=== PATIENT | female | born 1985 | race Caucasian/White ===

== ENCOUNTER 2017-12-31 18:11 | Emergency (ER) | payer MEDICAID ==
[~2017-12-31] VITALS: Ht 160 cm; Wt 115.6 kg
[2017-12-31 18:55] LABS: BASOPHILS # (AUTO) 0.08 x10^3/uL (0-0.1); BASOPHILS % (AUTO) 1 % (0-1); EOSINOPHILS % (AUTO) 2 % (1-7); LYMPHOCYTES # (AUTO) 2.09 x10^3/uL (1-3.4); LYMPHOCYTES % (AUTO) 21 % (22-44); MD NO; MEAN CORPUSCULAR HGB CONC 33.3 g/dL (32.4-35.8); MEAN CORPUSCULAR VOLUME 84.1 fL (80-100); MONOCYTES # (AUTO) 0.55 x10^3/uL (0.2-0.8); MONOCYTES % (AUTO) 6 % (2-9); NEUTROPHILS % (AUTO) 71 % (42-75); PLATELET COUNT 251 x10^3/uL (130-400); RED BLOOD COUNT 4.98 x10^6/uL (3.82-5.3); RED CELL DISTRIBUTION WIDTH 13.9 % (9.6-15.2)
[2017-12-31 19:05] LABS: ALANINE AMINOTRANSFERASE 43 U/L (12-78); ALBUMIN 3.9 g/dL (3.4-5.0); ANION GAP 8 mmol/L (5-15); CHLORIDE 109 mmol/L (98-107); CREATININE 0.69 mg/dL (0.55-1.02)
[2017-12-31 19:09] LABS: ALKALINE PHOSPHATASE 82 U/L (45-117); BILIRUBIN,TOTAL 0.3 mg/dL (0.2-1.0); TOTAL PROTEIN 7.5 g/dL (6.4-8.2)
[2017-12-31 19:56] VITALS: BP 120/84
== END 2017-12-31 20:10 | disposition home or self-care (01) ==
LOC: ED 18:44
DX: G44.219 Episodic tension-type headache, not intractable (principal); E66.9 Obesity, unspecified
CPT/HCPCS: 36415; 70450; 80053; 84703; 85025; 99285

== ENCOUNTER 2019-07-28 12:32 | Emergency (ER) | payer OTHER ==
[~2019-07-28] VITALS: Ht 160 cm; Wt 128.8 kg
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
[2019-07-28] MEDS ORDERED: METHOCARBAMOL 750 MG TABLET PO ONE (13:30)
[2019-07-28] MEDS ORDERED: IBUPROFEN 800 MG TABLET PO ONE (13:30)
[2019-07-28 14:42] VITALS: BP 132/78
== END 2019-07-28 14:44 | disposition home or self-care (01) ==
LOC: ED 14:40
DX: S39.012A Strain of muscle, fascia and tendon of lower back, initial encounter (principal); S29.012A Strain of muscle and tendon of back wall of thorax, initial encounter; V49.19XA Passenger injured in collision with other motor vehicles in nontraffic accident, initial encounter; Y93.89 Activity, other specified; Y92.410 Unspecified street and highway as the place of occurrence of the external cause; Y99.8 Other external cause status
CPT/HCPCS: 72072; 72110; 99283

== ENCOUNTER 2019-08-08 19:11 | Emergency (ER) | payer OTHER ==
[~2019-08-08] VITALS: Ht 160 cm; Wt 129.0 kg
[2019-08-08 19:36] VITALS: BP 124/70
[2019-08-08] MEDS ORDERED: AMOXICILLIN/CLAV 875-125MG TABLET PO STA (21:19)
[2019-08-08] MEDS ORDERED: AMOXICILLIN/CLAV 875-125MG TABLET ONE (22:10)
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
--- NOTE | 2019-08-08 22:25 | NUR ---
Patient/Caregiver given discharge instructions and they have confirmed that they understand the instructions. Patient ambulatory with steady gait.
== END 2019-08-08 22:26 | disposition home or self-care (01) ==
LOC: ED 22:00
DX: J02.0 Streptococcal pharyngitis (principal); E66.9 Obesity, unspecified
CPT/HCPCS: 71046; 87880; 99284

== ENCOUNTER 2020-04-30 09:24 | Emergency (ER) | payer OTHER ==
[~2020-04-30] VITALS: Ht 160 cm; Wt 126.6 kg
[2020-04-30] MEDS ORDERED: HYDROcodone/APAP 5/325 TABLET ONE ×2 (09:45→09:48)
[2020-04-30] MEDS ORDERED: HYDROcodone/APAP 5/325 TABLET PO ONE (10:00)
[2020-04-30 10:21] VITALS: BP 174/63
== END 2020-04-30 10:23 | disposition home or self-care (01) ==
LOC: ED 10:07
DX: K04.7 Periapical abscess without sinus (principal); M79.89 Other specified soft tissue disorders; E66.9 Obesity, unspecified; Z68.42 Body mass index [BMI] 45.0-49.9, adult
CPT/HCPCS: 99283

== ENCOUNTER 2020-08-27 09:38 | Emergency (ER) | payer OTHER ==
[~2020-08-27] VITALS: Ht 160 cm; Wt 128.6 kg
--- NOTE | 2020-08-27 09:53 | NUR ---
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
[2020-08-27] MEDS ORDERED: KETOROLAC 30 MG/1 ML IM ONE (10:30)
[2020-08-27] MEDS ORDERED: ACETAMINOPHEN 500 MG TABLET PO ONE (10:30)
--- NOTE | 2020-08-27 10:34 | NUR ---
PATIENT ARRIVES WITH RIGHT SHOULDER PAIN THAT BEGAN FOUR DAYS AGO. IT'S GETTING WORSE SHE STATES. STATES THAT SHE HAS HAD NO FALLS, NO TRAUMA, NO NONE TRIGGOR OF THIS PAIN.
[2020-08-27] MEDS ORDERED: KETOROLAC 30 MG/1 ML ONE (10:39)
[2020-08-27] MEDS ORDERED: ACETAMINOPHEN 500 MG TABLET ONE (10:39)
[2020-08-27 11:40] VITALS: BP 122/78
--- NOTE | 2020-08-27 11:41 | NUR ---
PATIENT AWAITING SLING, DISCHARGE REVIEWED, SHOWS UNDERSTANDING. REVIEWED RX AND FOLLOW UP.
== END 2020-08-27 11:49 | disposition home or self-care (01) ==
LOC: ED 11:40
DX: M25.511 Pain in right shoulder (principal); E66.9 Obesity, unspecified; I25.2 Old myocardial infarction; Z98.51 Tubal ligation status; Z68.43 Body mass index [BMI] 50.0-59.9, adult
CPT/HCPCS: 73030; 93005; 96372; 99283; J1885

== ENCOUNTER 2021-03-07 10:51 | Emergency (ER) | payer OTHER ==
--- NOTE | 2021-03-07 11:57 | NUR ---
TASK RN NOTE: NO ANSWER WHEN CALLED FROM [facility]OB[facility] X 1.
--- NOTE | 2021-03-07 13:00 | NUR ---
CALLED FOR TRIAGE, NO ANSWER
--- NOTE | 2021-03-07 13:29 | NUR ---
CALLED FOR TRIAGE, NO ANSWER
== END 2021-03-07 13:32 | disposition left against medical advice (07) ==
LOC: ED 13:25
DX: R10.9 Unspecified abdominal pain (principal); Z53.21 Procedure and treatment not carried out due to patient leaving prior to being seen by health care provider